=== PATIENT | female | born 1985 | race Caucasian/White ===

== ENCOUNTER → 2017-03-31 | Outpatient (CLI) | payer OTHER | END | disposition home or self-care (01) | LOC: CARD 10:58 | PROVIDERS: ATTEND Internal Medicine Cardiovascular Disease | DX: R55 Syncope and collapse (principal); R00.0 Tachycardia, unspecified; R42 Dizziness and giddiness; Z82.49 Family history of ischemic heart disease and other diseases of the circulatory system | CPT/HCPCS: 93017; 93350 ==

== ENCOUNTER 2017-07-04 17:58 | Emergency (ER) | payer OTHER ==
[~2017-07-04] VITALS: Ht 162.6 cm; Wt 45.7 kg
[2017-07-04 18:56] LABS: HEMATOCRIT 43.9 % (34.6-47.8); HEMOGLOBIN 14.8 g/dL (11.7-16.4); WHITE BLOOD COUNT 14.5 x10^3/uL (3.4-10)
[2017-07-04] MEDS ORDERED: DIAZEPAM 5 MG/ML, 2ML IV ONE (19:00)
[2017-07-04] MEDS ORDERED: SODIUM CHLORIDE FLUSH 10ML SYR IVF ONE (19:00)
[2017-07-04] MEDS ORDERED: ONDANSETRON ODT 4 MG PO ONE (19:00)
[2017-07-04] MEDS ORDERED: SODIUM CHLORIDE 0.9% 1,000ML IVBOLUS ONE (19:00)
[2017-07-04 19:07] LABS: BLOOD UREA NITROGEN 15 mg/dL (7-18)
[2017-07-04] MEDS ORDERED: ONDANSETRON ODT 4 MG ONE (19:08)
[2017-07-04 20:56] VITALS: BP 106/52
== END 2017-07-04 21:06 | disposition home or self-care (01) ==
LOC: ED 21:00
DX: R42 Dizziness and giddiness (principal); R53.1 Weakness; J45.909 Unspecified asthma, uncomplicated
CPT/HCPCS: 36415; 80048; 82040; 85025; 93005; 96361; 96374; 99285; J3360; J7030; Q0162

== ENCOUNTER 2017-07-12 14:25 | Inpatient (IN) | payer OTHER ==
[~2017-07-12] VITALS: Ht 162.6 cm; Wt 45.2 kg
[2017-07-12] MEDS ORDERED: SODIUM CHLORIDE 0.9% 1,000ML IVBOLUS ONE (15:30)
[2017-07-12] MEDS ORDERED: SODIUM CHLORIDE FLUSH 10ML SYR IVF ONE (15:30)
[2017-07-12 15:57] LABS: HEMATOCRIT 45.6 % (34.6-47.8); HEMOGLOBIN 15.5 g/dL (11.7-16.4); WHITE BLOOD COUNT 9.6 x10^3/uL (3.4-10)
[2017-07-12 16:10] LABS: BLOOD UREA NITROGEN 11 mg/dL (7-18)
[2017-07-12] MEDS ORDERED: ONDANSETRON 2MG/ML, 2ML ONE (17:06)
[2017-07-12] MEDS ORDERED: ONDANSETRON 2MG/ML, 2ML IVPush ONE (17:30)
[2017-07-12] MEDS ORDERED: GADOBUTROL 7.5 MMOL/7.5 ML PFS ONE (17:59)
[2017-07-12] MEDS ORDERED: SODIUM CHLORIDE 0.9%, 500ML IVBOLUS ONE (18:00)
[2017-07-12] MEDS ORDERED: BIRTH CONTROL PO (19:58)
[2017-07-12] MEDS ORDERED: ALBU0.63 NEB (19:58)
[2017-07-12 20:38] VITALS: BP 109/67
[2017-07-12] MEDS ORDERED: ONDANSETRON ODT 4 MG PO PRN (21:00)
[2017-07-12] MEDS ORDERED: DOCUSATE 100 MG CAPSULE PO PRN (21:00)
[2017-07-12] MEDS ORDERED: ZOLPIDEM 5MG TABLET PO PRN (21:00)
[2017-07-12] MEDS ORDERED: PROMETHAZINE 25 MG/ML, 1ML IM PRN (21:00)
[2017-07-12] MEDS ORDERED: ONDANSETRON 2MG/ML, 2ML IVPush PRN (21:00)
[2017-07-12] MEDS: SUCRALFATE 1 GM/10 ML UDC PO SCH (22:37)
[2017-07-12] MEDS: LACTOBACILLUS 1GM/ PACKET PO SCH (22:37)
[2017-07-12] MEDS: SODIUM CHLORIDE 0.9% 1,000 ML IV SCH (22:37)
[2017-07-12 22:45] LABS: PATH.CAST-FLAG NOT PRESENT; SPERM-FLAG NOT PRESENT; SRC-FLAG NOT PRESENT; XTAL-FLAG NOT PRESENT; YLC-FLAG NOT PRESENT
[2017-07-12 22:51] VITALS: BP 109/67
[2017-07-12] MEDS: ACETAMINOPHEN 325 MG TABLET PO PRN (23:18)
[2017-07-13 01:27] VITALS: BP 96/58
[2017-07-13] MEDS ORDERED: NORE0.3517 PO (02:01)
[2017-07-13 05:22] LABS: HEMATOCRIT 37.9 % (34.6-47.8); HEMOGLOBIN 13.1 g/dL (11.7-16.4); WHITE BLOOD COUNT 7.9 x10^3/uL (3.4-10)
[2017-07-13] MEDS: SODIUM CHLORIDE 0.9% 1,000 ML IV SCH ×3 (05:39→23:39)
[2017-07-13 05:46] LABS: ASPARTATE AMINO TRANSFERASE 21 U/L (15-37); BLOOD UREA NITROGEN 10 mg/dL (7-18)
[2017-07-13 07:41] VITALS: BP 97/60
[2017-07-13] MEDS: SUCRALFATE 1 GM/10 ML UDC PO SCH ×4 (07:55→20:58)
[2017-07-13] MEDS: LACTOBACILLUS 1GM/ PACKET PO SCH ×3 (09:00→20:58)
[2017-07-13 12:41] VITALS: BP 101/66
[2017-07-13 20:41] VITALS: BP 102/67
[2017-07-13] MEDS ORDERED: NORETHINDRONE PO SCH (20:51)
[2017-07-13] MEDS ORDERED: [UNRECOGNIZED DRUG - OTHER] PO SCH (20:51)
[2017-07-13] MEDS: ACETAMINOPHEN 325 MG TABLET PO PRN (20:58)
[2017-07-14 02:19] VITALS: BP 97/56
[2017-07-14 07:53] VITALS: BP 100/51
[2017-07-14] MEDS: LACTOBACILLUS 1GM/ PACKET PO SCH (08:06)
[2017-07-14] MEDS: SODIUM CHLORIDE 0.9% 1,000 ML IV SCH (08:06)
[2017-07-14] MEDS: SUCRALFATE 1 GM/10 ML UDC PO SCH (08:06)
[2017-07-14] MEDS ORDERED: PROM12.553 RC (09:23)
[2017-07-14] MEDS ORDERED: ACID1GRA3 PO (09:23)
[2017-07-14] MEDS: ACETAMINOPHEN 325 MG TABLET PO PRN (11:24)
== END 2017-07-14 11:54 | disposition home or self-care (01) | DRG 392 ==
LOC: ED 18:10 → EDIP 18:57 → 3NE 20:35 → DCLOUNGE 07-14 11:40
PROVIDERS: ADMIT Surgery; ATTEND Surgery
DX: R11.2 Nausea with vomiting, unspecified (principal); E46 Unspecified protein-calorie malnutrition; Z68.1 Body mass index [BMI] 19.9 or less, adult; R26.9 Unspecified abnormalities of gait and mobility; R42 Dizziness and giddiness; R55 Syncope and collapse; G43.909 Migraine, unspecified, not intractable, without status migrainosus; J45.909 Unspecified asthma, uncomplicated; Z88.0 Allergy status to penicillin; Z88.1 Allergy status to other antibiotic agents
CPT/HCPCS: 36415; 70450; 70553; 74249; 80048; 80053; 80061; 81001; 82040; 82607; 83690; 83735; 84100; 84439; 84443; 84703; 85025; 85610; 85651; 87086; 93005; 96361; 96374; A9585; J2405; J2550; Q0162; J7030; J7040

== ENCOUNTER 2017-08-26 08:26 | Day surgery (SDC) | payer OTHER ==
[~2017-08-26] VITALS: Ht 162.6 cm; Wt 42.7 kg
[~2017-08-26 08:26] MED LIST: ACID1GRA3 PO; ALBU0.63 NEB; BIRTH CONTROL PO; NORE0.3517 PO; PROM12.553 RC
[2017-08-26 08:39] VITALS: BP 113/70
[2017-08-26] MEDS ORDERED: FLUT9.9S INH (08:57)
[2017-08-26] MEDS ORDERED: NITROGLYCERIN 0.4 MG BOTTLE (25 TABS) SL ONE (10:16)
== END 2017-08-26 10:45 | disposition home or self-care (01) ==
LOC: CACL 08:26
PROVIDERS: ATTEND Internal Medicine Cardiovascular Disease
DX: R55 Syncope and collapse (principal); I49.3 Ventricular premature depolarization; R94.31 Abnormal electrocardiogram [ECG] [EKG]; R00.2 Palpitations
CPT/HCPCS: 93660

== ENCOUNTER → 2017-12-22 | Outpatient (CLI) | payer OTHER, MEDICAID ==
[~2017-12-22] MED LIST changes: +FLUT9.9S INH
== END | disposition home or self-care (01) ==
LOC: PETCFH 09:56
PROVIDERS: ATTEND Nurse Practitioner Primary Care
DX: R11.2 Nausea with vomiting, unspecified (principal)
CPT/HCPCS: 78264; A9541

== ENCOUNTER → 2018-04-17 | Outpatient (CLI) | payer MEDICAID ==
[~2018-04-17] MED LIST changes: +OMNIPAQUE 350 MG/ML, 75ML BOTTLE ONE
== END | disposition home or self-care (01) ==
LOC: CFH 13:57
PROVIDERS: ATTEND Nurse Practitioner Primary Care
DX: G70.00 Myasthenia gravis without (acute) exacerbation (principal)
CPT/HCPCS: 71260; Q9967